=== PATIENT | male | born 1980 | race Caucasian/White ===

== ENCOUNTER 2019-01-12 08:10 | Emergency (ER) | payer SELFPAY ==
--- NOTE | 2019-01-12 08:41 | EDM.PDOC ---
ED HPI GENERAL MEDICAL PROBLEM - General Chief Complaint: ENT Problem Stated Complaint: DENTAL COMPLAINT Time Seen by Provider: 01/12/19 08:17 Source of Information: Reports: Patient History Limitations: Reports: No Limitations - History of Present Illness INITIAL COMMENTS - FREE TEXT/NARRATIVE: The patient presents with dental pain. This pain started on Sunday. He has pain to the right lower jaw and the 3rd molar. The tooth has been broken for awhile but never infected like this. He has no fever or chills. Onset: Gradual Duration: Day(s): (2) Location: Reports: Other (right lower jaw) Quality: Reports: Sharp Severity: Severe Improves with: Reports: None Worsens with: Reports: None Associated Symptoms: Reports: No Other Symptoms Right Lower Tooth/Teeth Pain Score (Numeric/FACES): 9 - Related Data Allergies Allergy/AdvReac Type Severity Reaction Status Date / Time No Known Allergies Allergy Verified 01/12/19 08:17 Home Meds: Home Meds . [No Known Home Meds] 01/12/19 [History] Past Medical History - Past Health History Medical/Surgical History: Denies Medical/Surgical History Social & Family History - Family History Family Medical History: Noncontributory - Tobacco Use Smoking Status *Q: Current Some Day Smoker Years of Tobacco use: 15 Packs/Tins Daily: 0 - Caffeine Use Caffeine Use: Reports: None - Recreational Drug Use Recreational Drug Use: No ED ROS ENT - Review of Systems Review Of Systems: See Below Constitutional: Reports: No Symptoms HEENT: Reports: Dental Pain Respiratory: Reports: No Symptoms Cardiovascular: Reports: No Symptoms Endocrine: Reports: No Symptoms GI/Abdominal: Reports: No Symptoms : Reports: No Symptoms Musculoskeletal: Reports: No Symptoms Skin: Reports: No Symptoms ED EXAM, ENT - Physical Exam Exam: See Below Exam Limited By: No Limitations General Appearance: Alert, No Apparent Distress Ears: Normal External Exam Nose: Normal Inspection Mouth/Throat: Other (Broken 3rd molar to the righ lower jaw. With erythema and edema.) ED ENT PROCEDURES - Additional/Other Procedure(s) Other (Free Text) Procedure(s): I used sensorecaine 0.5% to anaethetize his right lower jaw. Verbal consent was obtained. I put some local numbing medicine before the procedure. I injected 2ccs of the medicine and he had good anaesthesia. Course - Vital Signs Last Recorded V/S: Last Vital Signs Temp 97.4 F 01/12/19 08:14 Pulse 99 01/12/19 08:14 Resp 18 01/12/19 08:14 BP 183/118 H 01/12/19 08:14 Pulse Ox 98 01/12/19 08:14 - Re-Assessments/Exams Free Text/Narrative Re-Assessment/Exam: 01/12/19 08:47 I did an inferior alveolar nerve block and I will get him on some hydrocodone for pain and penicillin. Departure - Departure Time of Disposition: 08:50 Disposition: Home, Self-Care 01 Condition: Good Clinical Impression: Dental abscess, Pain, dental - Discharge Information *PRESCRIPTION DRUG MONITORING PROGRAM REVIEWED*: Not Applicable *COPY OF PRESCRIPTION DRUG MONITORING REPORT IN PATIENT LES: Not Applicable Referrals: PCP,None [Primary Care Provider] - Forms: ED Department Discharge Additional Instructions: Take the hydrocodone as needed for pain. Take the penicillin Vk 4 times per day for 10 days. Follow up with your dentist this week. Pleas return if you are worse.
== END 2019-01-12 09:05 | disposition home or self-care (01) ==
LOC: JD.ED 08:10
DX: K04.7 Periapical abscess without sinus (principal); F17.210 Nicotine dependence, cigarettes, uncomplicated
CPT/HCPCS: 64400; 64450; 99282-25; 99283

== ENCOUNTER 2024-05-14 09:33 | Emergency (ER) | payer SELFPAY ==
[2024-05-14] MEDS: Acetaminophen/HYDROcodone 325-5 MG Tab PO ONE (10:35)
== END 2024-05-14 10:32 | disposition home or self-care (01) ==
LOC: JD.ED 09:33
DX: S52.592A Other fractures of lower end of left radius, initial encounter for closed fracture (principal); S52.615A Nondisplaced fracture of left ulna styloid process, initial encounter for closed fracture; F17.210 Nicotine dependence, cigarettes, uncomplicated; W19.XXXA Unspecified fall, initial encounter
CPT/HCPCS: 29125; 73090; 99283; A9270; 99282